=== PATIENT | female | born 1960 | race Caucasian/White ===

== ENCOUNTER 2017-02-27 11:00 | Emergency (ER) | payer OTHER ==
[~2017-02-27] VITALS: Ht 162.6 cm; Wt 65.3 kg
[2017-02-27 11:35] VITALS: BP 145/91
--- NOTE | 2017-02-27 11:44 | NUR ---
Patient to bed 8 at this time.
--- NOTE | 2017-02-27 11:48 | NUR ---
56 F BIB SELF WITH C/O LEFT INJURY EYE; PT DENIES ANY PAIN; PT STATES SHE WASDOG SITTING YESTERDAY AND DOG'S PAW HIT LEFT EYE; PT DENIES ANY DISCHARGE OR CHANGE IN VISION; PT REPORTS SAND PAPER SENSATION TO LEFT EYE; REDNESS AND MILD SWELLING TO LEFT EYE; PT IS AOX4; RR ARE EVEN AND UNLABORED; VSS; PATIENT POSITIONED FOR COMFORT; HOB ELEVATED; BED DOWN; ER MD MADE AWARE OF PT STATUS.
[2017-02-27] MEDS ORDERED: FLUORESCEIN OPTH STRIP 1 MG OP ONE (11:50)
[2017-02-27 13:01] VITALS: BP 147/86
--- NOTE | 2017-02-27 13:01 | NUR ---
Patient discharged with v/s stable. Written and verbal after care instructions given and explained. Patient alert, oriented and verbalized understanding of instructions. Ambulatory with steady gait. All questions addressed prior to discharge. ID band removed. Patient advised to follow up with PMD. Rx of ERYTHROMYCIN 0.5% OPTHALMIC OINTMENT given. Patient educated on indication of medication including possible reaction and side effects. Opportunity to ask questions provided and answered.
== END 2017-02-27 13:01 | disposition home or self-care (01) ==
LOC: MED 11:00
DX: S05.02XA Injury of conjunctiva and corneal abrasion without foreign body, left eye, initial encounter (principal); Z88.0 Allergy status to penicillin; Z88.2 Allergy status to sulfonamides; Z90.89 Acquired absence of other organs; W55.03XA Scratched by cat, initial encounter; Y93.89 Activity, other specified; Y92.89 Other specified places as the place of occurrence of the external cause; Y99.8 Other external cause status
CPT/HCPCS: 99283